=== PATIENT | male | born 2000 ===

== ENCOUNTER 2023-02-06 19:57 | Outpatient (REF) | payer BC, SELFPAY ==
[2023-02-06 21:15] LABS: Source Nasal/Nares
[2023-02-06 21:39] LABS: ALT 45 U/L (16-63); AST 34 U/L (15-37); Albumin 3.9 g/dL (3.4-5.0); Alkaline Phosphatase 68 U/L (46-116); Anion Gap 8.6 mmol/L (3-11); BUN 11 mg/dL (7-18); Bilirubin, Total 0.5 mg/dL (0.2-1.0); CO2 28.4 mmol/L (21.0-32.0); CREATININE 1.2 mg/dL (0.70-1.30); Calcium 8.6 mg/dL (8.5-10.1); Chloride 106 mmol/L (98-107); Estimated GFR 88.79 (mL/min/1.73m2); Glucose 94 mg/dL (74-106); Lipase 20 U/L (16-77); Sodium 143 mmol/L (136-145); Total Protein 6.7 g/dL (6.4-8.2)
[2023-02-06 21:49] LABS: COVID-19 PCR Negative (Negative)
== END 2023-02-06 19:58 | disposition home or self-care (01) ==
LOC: LBN 19:57
PROVIDERS: Visit Provider Physician Assistant Medical
DX: R11.10 Vomiting, unspecified (principal); Z20.822 Contact with and (suspected) exposure to COVID-19
CPT/HCPCS: 80053; 83690; 87635